=== PATIENT | female | born 1960 | race African-American/Black ===

== ENCOUNTER 2017-09-06 07:26 | Emergency (ER) | payer BC ==
[2017-09-06] MEDS ORDERED: methylPREDNISolone 125 MG* 2 ML VIAL IV ONE (08:53)
[2017-09-06] MEDS ORDERED: Albuterol/Ipratropium NEB.SOL* Albuterol 2.5 MG/Ipratropium 0.5 MG 3 ML INH ONE (08:53)
--- NOTE | 2017-09-06 09:51 | RAD ---
INDICATION: Cough. COMPARISON: Comparison is made with a prior chest study from December 01, 2008. TECHNIQUE: Dual-energy PA and lateral views of the chest were obtained. FINDINGS: The heart is within normal limits in size. Mediastinal and hilar contours appear within normal limits. The lungs are clear. No pleural effusion is present. IMPRESSION: NO EVIDENCE FOR ACTIVE CARDIOPULMONARY DISEASE.
[2017-09-06] MEDS ORDERED: NS 0.9% 1000 ML* 1,000 ML IV ONE (10:55)
[2017-09-06 11:19] LABS: ABS Basophils 0 10^3/ul (0-0.2); ABS Eosinophils 0 10^3/ul (0-0.6); ABS Lymphocytes 0.9 10^3/ul (1.0-4.8); ABS Monocytes 0.2 10^3/ul (0-0.8); ABS Neutrophils 3.8 10^3/ul (1.5-7.7); ABS Nucleated RBC 0 10^3/ul; Eosinophil % 0.1 % (0-6); Hematocrit 42 % (35-47); Mean Corpuscular HGB Conc 33 g/dl (31-36); Mean Corpuscular Hemoglobin 27 pg (27-31); Mean Corpuscular Volume 83 fL (80-97); Mean Platelet Volume 8.7 um3 (7.4-10.4); Nucleated Red Blood Cells % 0.1; Platelet Count 191 10^3/ul (150-450); Red Blood Count 5.11 10^6/ul (4.0-5.4); Red Cell Distribution Width 16 % (10.5-15); White Blood Count 4.8 10^3/ul (3.5-10.8)
[2017-09-06 11:39] LABS: EGFR Non-African American 58.9 (>60)
[2017-09-06 12:16] VITALS: BP 145/74
--- NOTE | 2017-09-06 12:26 | ED ---
Zander Barkley Thomas, scribed for Rob Valenzuela MD on 09/06/17 at 1024 . Respiratory - HPI Summary HPI Summary: The patient is a 57 year old female complaining of a dry cough for the last month. The cough has been causing her difficulty breathing and difficulty sleeping. She went to her PMD about a month ago and she was negative for the Flu. The patient was prescribed albuterol PRN by her PMD, which she has been using to no relief of symptoms. The patient denies fevers. - History of Current Complaint Chief Complaint: EDFluSymptoms Stated Complaint: POSSIBLE FLU/DEHYDRATION Time Seen by Provider: 09/06/17 07:49 Hx Obtained From: Patient Onset/Duration: Lasting Weeks, Still Present Timing: Intermittent Episodes Lasting: Initial Severity: Moderate Current Severity: Moderate Pain Intensity: 6 Character: Cough (Nonproductive) Sputum Amount: None Alleviating Factor(s): Nothing Associated Signs and Symptoms: Negative - fevers - Allergy/Home Medications Allergies/Adverse Reactions: Allergies Allergy/AdvReac Type Severity Reaction Status Date / Time No Known Allergies Allergy Verified 07/03/14 10:37 PMH/Surg Hx/FS Hx/Imm Hx Endocrine/Hematology History: Denies: Hx Diabetes, Hx Thyroid Disease Cardiovascular History: Denies: Hx Hypertension Respiratory History: Denies: Hx Asthma, Hx Chronic Obstructive Pulmonary Disease (COPD) GI History: Denies: Hx Ulcer - Surgical History Surgery Procedure, Year, and Place: hysterectomy 2008. shoulder surgery 2003. tonsillectomy due to sleep apnea Infectious Disease History: No Infectious Disease History: Denies: Hx Clostridium Difficile, Hx Hepatitis, Hx Human Immunodeficiency Virus (HIV), Hx of Known/Suspected MRSA, Hx Shingles, Hx Tuberculosis, Traveled Outside the [place] in Last 30 Days - Family History Known Family History: Positive: Other - Patient denies relevant FHx - Social History Alcohol Use: Weekly Alcohol Amount: "every Sunday" Substance Use Type: Reports: None Smoking Status (MU): Never Smoked Tobacco Review of Systems Negative: Fever Positive: Cough - dry All Other Systems Reviewed And Are Negative: Yes Physical Exam - Summary Physical Exam Summary: Appearance: The patient is well-nourished in no acute distress and in no acute pain. Skin: The skin is warm and dry and skin color reflects adequate perfusion. HEENT: The head is normocephalic and atraumatic. The pupils are equal and reactive. The conjunctivae are clear and without drainage. Nares are patent and without drainage. Mouth reveals moist mucous membranes and the throat is without erythema and exudate. The external ears are intact. The ear canals are patent and without drainage. The tympanic membranes are intact. Neck: the neck is supple with full range of motion and non-tender. There are no carotid bruits. There is no neck vein distension. Respiratory: Chest is non-tender. There are some expiratory wheezes. Cardiovascular: Heart is regular rate and rhythm. There is no murmur or rub auscultated. There is no peripheral edema and pulses are symmetrical and equal. Abdomen: The abdomen is soft and non-tender. There are normal bowel sounds heard in all four quadrants and there is no organomegaly palpated. Musculoskeletal: There is no back tenderness noted. Extremities are non-tender with full range of motion. There is good capillary refill. There is no peripheral edema or calf tenderness elicited. Neurological: Patient is alert and oriented to person, place and time. The patient has symmetrical motor strength in all four extremities. Cranial nerves are grossly intact. Deep tendon reflexes are symmetrical and equal in all four extremities. Psychiatric: The patient has an appropriate affect and does not exhibit any anxiety or depression. Triage Information Reviewed: Yes Vital Signs On Initial Exam: Initial Vitals Temp Pulse Resp BP Pulse Ox 98.9 F 97 20 137/69 96 09/06/17 07:42 09/06/17 07:42 09/06/17 07:42 09/06/17 07:42 09/06/17 07:42 Vital Signs Reviewed: Yes Diagnostics - Vital Signs Vital Signs Temp Pulse Resp BP Pulse Ox 09/06/17 09:08 83 14 99 09/06/17 09:00 92 118/73 97 09/06/17 08:30 99 124/78 96 09/06/17 07:59 97 96 09/06/17 07:58 105 97 09/06/17 07:57 132/78 09/06/17 07:42 98.9 F 97 20 137/69 96 - Laboratory Lab Results: Lab Results 09/06/17 09/06/17 Range/Units 11:07 11:07 WBC 4.8 (3.5-10.8) 10^3/ul RBC 5.11 (4.0-5.4) 10^6/ul Hgb 14.0 (12.0-16.0) g/dl Hct 42 (35-47) % MCV 83 (80-97) fL MCH 27 (27-31) pg MCHC 33 (31-36) g/dl RDW 16 H (10.5-15) % Plt Count 191 (150-450) 10^3/ul MPV 8.7 (7.4-10.4) um3 Neut % (Auto) 77.8 (38-83) % Lymph % (Auto) 18.0 L (25-47) % Angelina % (Auto) 3.6 (0-7) % Eos % (Auto) 0.1 (0-6) % Baso % (Auto) 0.5 (0-2) % Absolute Neuts (auto) 3.8 (1.5-7.7) 10^3/ul Absolute Lymphs (auto) 0.9 L (1.0-4.8) 10^3/ul Absolute Monos (auto) 0.2 (0-0.8) 10^3/ul Absolute Eos (auto) 0 (0-0.6) 10^3/ul Absolute Basos (auto) 0 (0-0.2) 10^3/ul Absolute Nucleated RBC 0 10^3/ul Nucleated RBC % 0.1 Sodium 135 (133-145) mmol/L Potassium 4.0 (3.5-5.0) mmol/L Chloride 103 (101-111) mmol/L Carbon Dioxide 23 (22-32) mmol/L Anion Gap 9 (2-11) mmol/L BUN 12 (6-24) mg/dL Creatinine 0.98 H (0.51-0.95) mg/dL Est GFR ( Amer) 75.8 (>60) Est GFR (Non-Af Amer) 58.9 (>60) BUN/Creatinine Ratio 12.2 (8-20) Glucose 211 H (70-100) mg/dL Calcium 9.0 (8.6-10.3) mg/dL Total Bilirubin 0.30 (0.2-1.0) mg/dL AST 23 (13-39) U/L ALT 30 (7-52) U/L Alkaline Phosphatase 67 (34-104) U/L C-Reactive Protein 8.78 H (< 5.00) mg/L Total Protein 6.9 (6.4-8.9) g/dL Albumin 4.1 (3.2-5.2) g/dL Globulin 2.8 (2-4) g/dL Albumin/Globulin Ratio 1.5 (1-3) Result Diagrams: 09/06/17 11:07 09/06/17 11:07 Lab Statement: Any lab studies that have been ordered have been reviewed, and results considered in the medical decision making process. - Radiology CXR Xray Interpretation: No Acute Changes - No evidence for active cardiopulmonary disease. Dr. Valenzuela has reviewed this report. Radiology Interpretation Completed By: Radiologist Re-Evaluation - Re-Evaluation First Eval Re-Evaluation Time: 10:55 Change: Improved Comment: She is improved after treatments. She now tells me that she has spots in her eyes when she stands up. Second Eval Re-Evaluation Time: 12:01 Comment: She will be discharged. Disposition - Course Course Of Treatment: Ms. Weiss presented with a concern that she has been coughing paroxysmally for a month. She saw her PMD and was given an albuterol inhaler but hasn't gotten any better. She did have a slight wheeze here which improved with a duoneb as did her coughing. I will give her a short burst as well as tessalon for symptomatic treatment. - Diagnoses Provider Diagnoses: Bronchitis Discharge - Sign-Out/Discharge Documenting (check all that apply): Discharge - Discharge Plan Condition: Stable Disposition: HOME Prescriptions: Benzonatate CAP* [Tessalon 100 MG CAP*] 100 mg PO TID PRN #30 cap PRN Reason: Cough methylPREDNISolone [Medrol Dosepak 4 MG*] 4 mg PO .SEE ANTON INSTRUCTION #1 tab Patient Education Materials: Acute Bronchitis (ED) Forms: *Work Release Referrals: Catherine Zhang MD [Primary Care Provider] - 3 Days Additional Instructions: Follow up with your primary care physician in three days. Return to the emergency department for any new or worsening symptoms. - Billing Disposition and Condition Condition: STABLE Disposition: HOME The documentation as recorded by the Zander chambers Thomas accurately reflects the service I personally performed and the decisions made by me, Rob Valenzuela MD.
== END 2017-09-06 12:15 | disposition home or self-care (01) ==
LOC: ED 07:26
DX: J40 Bronchitis, not specified as acute or chronic (principal); R05 Cough
CPT/HCPCS: 36415; 71046; 80053; 85025; 86140; 94640; 96374; 99282; A9270-GY; J2930

== ENCOUNTER 2019-02-20 08:22 | Emergency (ER) | payer BC ==
--- OUTSIDE RECORDS SUMMARY | 2019-02-20 08:44 | XMS REPORT | Continuity of Care Document ---
:1960 External Reference #:[id number] Author Name Catherine Zhang M.D. Address [address] [facility] [place] [address] Care Team Providers Name Role Phone Catherine Zhang M.D. - Family Medicine Care Team Information [facility] Unavailable [facility] Neurosurgery Care Team Information [facility] [phone] [facility] Physical Care Team Information [facility] [phone] Therapy - Physical Therapy [facility] - Physical Care Team Information [facility] Therapist Problems Active Problems Provider Date Disorder of thyroid gland Mahesh Saucedo M.D. Onset: 06/26/2014 Anxiety Catherine Zhang M.D. Onset: 01/26/2016 Premature atrial contraction Catherine Zhang M.D. Onset: 01/26/2016 Asthma Catherine Zhang M.D. Onset: 01/26/2016 Mixed hyperlipidemia Catherine Zhang M.D. Onset: 02/01/2016 Impaired fasting glycaemia Catherine Zhang M.D. Onset: 05/02/2018 Erosive gastro-esophageal reflux disease Catherine Zhang M.D. Onset: 07/10/2018 Muscle pain Catherine Zhang M.D. Onset: 07/18/2018 Gastro-esophageal reflux disease with Catherine Zhang M.D. Onset: 07/18/2018 esophagitis Neck pain Catherine Zhang M.D. Onset: 07/18/2018 Social History Type Date Description Comments Sex Unknown Tobacco Use Start: Unknown Nonsmoker Tobacco Use Start: Unknown End: Former Cigarette Smoker 1999 Smoking Status Reviewed: 07/18/18 Former Cigarette Smoker 1999 ETOH Use Occasionally consumes alcohol 1x/week Tobacco Use Start: Unknown End: Patient is a former smoker Unknown Recreational Drug Use Denies Drug Use Allergies, Adverse Reactions, Alerts Active Allergies Reaction Severity Comments Date Betadine Contact dermatitis 07/30/2014 Facial Mask facial rash 07/30/2017 Inactive Allergies NKDA 02/17/2011 Medications Active Medications SIG Qnty Indications Ordering Provider Date Ocuvite Adult 50+ 1 by mouth daily Unknown Capsules Multivitamin Adult 1 by mouth every Unknown Tablets day Immunizations CPT Code Status Date Vaccine Reaction Lot # [id number] Given 02/17/2015 Tdap Tetanus, W Pertussis [id number] Given 04/05/2011 DO Not Use Split Influenza Virus no reaction noted [id number] Vaccine 89717 Given 08/09/2009 DO Not Use Split Influenza Virus [id number] Vaccine 04720 Given 11/12/2000 Td Immunization, For Use In Individuals 7 Years Or Older Vital Signs Date Vital Result Comment 02/06/2019 10:37am BP Systolic 124 mmHg BP Diastolic 82 mmHg Heart Rate 64 /min Body Temperature 98.8 F Respiratory Rate 16 /min Height 64.75 inches 5'4.75" stated Weight 197.00 lb BMI (Body Mass Index) 33.0 kg/m2 07/18/2018 9:09am BP Systolic 130 mmHg BP Diastolic 84 mmHg Heart Rate 72 /min Body Temperature 98.0 F Height 64.75 inches 5'4.75" stated Weight 197.00 lb BMI (Body Mass Index) 33.0 kg/m2 Results Test Date Facility Test Result H/L Range Note Comprehensive Metabolic 01/28/2019 [facility]) Sodium 141 mEq/L 134-149 Prof Potassium 4.6 mEq/L 3.6-5.5 Chloride 106 mEq/L 94-112 Carbon Dioxide 24 mEq/L 21-32 Glucose 157 mg/dL High 70-105 1 BUN 13 mg/dL 6-26 Creatinine 0.9 mg/dL 0.6-1.4 BUN/Creat Ratio 14.4 CALC 8.0-36.0 Calcium 9.1 mg/dL 8.6-10.2 Total Protein 6.5 g/dL 6.4-8.3 Albumin 4.4 g/dL 3.8-5.5 Globulin 2.1 g/dL 2.0-4.8 A/G Ratio 2.1 CALC 0.6-2.3 Alk. Phosphatase 81 U/L 30-110 Alt (SGPT) 23 U/L 7-35 Ast (Sgot) 15 U/L 5-34 Total Bilirubin 0.5 mg/dL 0.2-1.3 GFR Non- >60 ml/min/1.73m^ >=60 GFR >60 ml/min/1.73m^ >=60 Lipid Profile 01/28/2019 [facility]) Cholesterol 199 mg/dL 120- 200 Triglycerides 83 mg/dL 30-200 HDL Cholesterol 42 mg/dL 30-85 LDL (Calculated) 140 CALC High 0-129 VLDL Cholesterol 17 mg/dL 0-50 HDL Risk Factor 4.7 CALC High 0.0-4.4 Laboratory test finding 01/28/2019 [facility]) TSH 1.76 mIU/L 0.50-6.00 Free T4 0.87 ng/dL 0.75-1.54 CBC Electronic a 01/28/2019 [facility]) WBC 8.4 x10^3/UL 4.0- 10.0 RBC 4.91 x10^6/UL 3.93-6.00 HGB 13.6 g/dL 12.0-17.0 HCT 41 % 35-50 MCV 82.7 fL 80.0-95.0 MCH 27.7 pg 25.6-32.2 MCHC 33.5 g/dL 32.2-36.0 RDW-CV 15.6 % High 11.6-14.4 PLT 268 x10^3/UL 163-400 MPV 11.4 fL 9.4-12.4 Kali# 3.82 x10^3/UL 1.56-6.13 Lymph# 3.59 x10^3/UL 1.18-3.74 [place]# 0.61 x10^3/UL 0.24-0.82 Eos # 0.4 x10^3/UL 0.0-0.5 Baso # 0.05 x10^3/UL 0.01-0.08 Kali% 45.3 % 34.0-70.0 Lymph % 42.5 % 20.0-52.0 [place]% 7.2 % 5.0-12.0 Eos% 4.3 % 0.7-7.0 Baso% 0.6 % 0.1-1.2 Laboratory test 01/28/2019 [facility] Hemoglobin A1c 5.9 % High 4.1- 5.7 finding (607)- - (Fma) Laboratory test 10/01/2018 [facility] SEE RESULT 2, 3 finding Interface Order BELOW Comprehensive 09/04/2018 [facility]) Sodium 148 mEq/L 134-149 Metabolic Prof Potassium 4.7 mEq/L 3.6-5.5 Chloride 109 mEq/L 94-112 Carbon Dioxide 22 mEq/L 21-32 Glucose 155 mg/dL High 70-105 BUN 12 mg/dL 6-26 Creatinine 1.1 mg/dL 0.6-1.4 BUN/Creat Ratio 10.9 CALC 8.0-36.0 Calcium 9.9 mg/dL 8.6-10.2 Total Protein 7.0 g/dL 6.4-8.3 Albumin 4.8 g/dL 3.8-5.5 Globulin 2.2 g/dL 2.0-4.8 A/G Ratio 2.2 CALC 0.6-2.3 Alk. Phosphatase 87 U/L 30-110 Alt (SGPT) 23 U/L 7-35 Ast (Sgot) 17 U/L 5-34 Total Bilirubin 0.7 mg/dL 0.2-1.3 GFR Non- 55 ml/min/1.73m^ Low >=60 GFR >60 ml/min/1.73m^ >=60 Lipid Profile 09/04/2018 [facility]) Cholesterol 192 mg/dL 120- 200 Triglycerides 101 mg/dL 30-200 HDL Cholesterol 45 mg/dL 30-85 LDL (Calculated) 127 CALC 0-129 VLDL Cholesterol 20 mg/dL 0-50 HDL Risk Factor 4.3 CALC 0.0-4.4 Laboratory test finding 09/04/2018 [facility]) TSH 1.99 mIU/L 0.50-6.00 Free T4 1.01 ng/dL 0.75-1.54 Rheumatoid 09/04/2018 [facility] Ra Latex <10.0 IU/mL 0.0-13.9 4 Arthritis Factor [address] [facility] ([facility]) [place] [address] (607)- - CBC Electronic 09/04/2018 [facility] WBC 6.74 4.0-10.0 ([facility] New) (607)- - RBC 5.25 3.93-6.0 Hemoglobin (Fma/CMC/CTX) 14.4 g/dL 12.0-17.0 Hematocrit (Fma/CMC/CTX) 44.0 % 35.0-50.0 Mean Corpuscular Vol 83.8 fL 80-95 Mean Corpuscular Hemoglobin 27.4 pg 25.6-32.2 Mean Corpuscular Hemo Concen 32.7 g/dL 32.2-36.0 Platelets 245 10^3/ul 163-400 RDW-CV 15.7 High 11.6-14.4 Mean Platelet Volume 9.9 fL 8.0-12.4 Absolute Neutrophils BLD 3.51 1.56-6.13 Absolute Lymphocytes 2.51 1.18-3.74 Absolute Monocytes BLD Auto 0.60 0.24-0.82 Absolute Eos Blood 0.09 0.04-0.54 Absolute Basophils 0.03 0.01-0.08 Neutrophil % 52.2 % 34.0-70.0 Lymph% 37.2 % 20.0-52.0 Monocytes % 8.9 % 5.0-12.0 Eos % 1.3 % 0.7-7.0 Basophil% 0.4 % 0-1.2 Laboratory test 09/04/2018 [facility] Hemoglobin A1c 5.9 % % High 4.1-5.7 finding (607)- - (Fma) 1 consistent w/ previous results 2 [id number] SEE RESULT BELOW Name: FRANCE WEISS : [address]: Librado Ramírez DO Acct: [id number] Unit: [id number] AGE: 58 Location: [facility] Re10/01/18 SEX: F Status: DEP REF SPEC: [id number] EVETTE: 10/01/18-[address] [facility] [address]: Librado Ramírez DO REQ: [id number] RECD: 10/01/18 STATUS: TAWANDA GALVEZ DR: Catherine Zhang MD _ ORDERED: LEVEL 4/2, IMMUNO-FIRST COMMENTS: [id number] ADDENDUM An H. pylori immunohistochemical stain, with appropriately reacting controls , was performed on sections cut from specimen one and is negative for Helicobacter organisms. Addendum Signed (signature on file) Tana Doss MD 1027 FINAL DIAGNOSIS 1. Stomach, biopsy: -- Antral-type gastric mucosa with moderate chronic gastritis; see comment. 2. Esophagus, distal, biopsy: -- Benign squamous and columnar-type mucosa with chronic inflammation. -- Intestinal metaplasia is absent. -- Dysplasia is absent. COMMENT: An H. pylori immunohistochemical stain is pending for specimen 1 and the results will be reported in an addendum. CLINICAL HISTORY Erosive esophagitis CONTINUED ON NEXT PAGE DEPARTMENT OF PATHOLOGY, [address], [place], [place] [address] Loco Eng M.D. Director [facility] # [id number] RUN DATE: 10/03/18 [facility] LAB LIVE PAGE 2 Patient: FRANCE WEISS [id number] (Continued) POST-OPERATIVE DIAGNOSIS (Continued) POST-OPERATIVE DIAGNOSIS EGD: esophagus - healed erosive reflux biopsy; minimal gastroesophageal junction; variable; gastric - mild antral gastritis; duodenum - normal GROSS DESCRIPTION 1. The specimen is received in formalin labeled, Gastric Biopsy for Gastritis, and consists of two grimm-pink irregular soft tissue fragments averaging aggregating 0.4 x 0.3 x 0.1 cm which are submitted entirely in one cassette. 2. The specimen is received in formalin labeled, Distal Esophagus Biopsies , and consists of a 0.5 x 0.2 x 0.1 cm aggregate of grimm-pink irregular soft tissue fragments which is submitted entirely in one cassette. Signed by and Reported on: Tana Doss MD 10/02/18 1302 END OF REPORT DEPARTMENT OF PATHOLOGY, [address] [place] [address] Loco Eng M.D. Director [facility] # [id number] 4 SERUM Procedures Date Code Description Status 06/14/2018 [id number] Mammogram Completed 06/18/2012 [id number] Colonoscopy Completed Medical Devices Description No Information Available Encounters Type Date Location Provider Dx Diagnosis Office Visit 02/06/2019 Main Office Catherine Zhang M.D. R73.01 Impaired fasting 10:40a glucose M54.12 Radiculopathy, cervical region M54.5 Low back pain Assessments Date Code Description Provider 02/06/2019 R73.01 Impaired fasting glucose Catherine Zhang M.D. 02/06/2019 M54.12 Radiculopathy, cervical region Catherine Zhang M.D. 02/06/2019 M54.5 Low back pain Catherine Zhang M.D. 01/28/2019 R73.01 Impaired fasting glucose Catherine Zhang M.D. 01/28/2019 Z00.01 Encounter for general adult medical examination Catherine Zhang M.D. with abnormal findings 01/28/2019 E07.9 Disorder of thyroid, unspecified Catherine Zhang M.D. 09/04/2018 Z00.01 Encounter for general adult medical exam w Catherine Zhang M.D. abnormal findings 09/04/2018 E07.9 Disorder of thyroid, unspecified Catherine Zhang M.D. 09/04/2018 R73.01 Impaired fasting glucose Catherine Zhang M.D. Plan of Treatment Future Appointment(s):07/24/2019 8:00 am - Catherine Zhang M.D. at Main [facility] - Catherine Zhang M.D.R73.01 Impaired fasting glucoseComments:Counseled on heart healthy diet and exercise including limiting carbs and portion control and at least 30 minutes of physical activity daily. Consider Mediterranean diet as a guide for healthy eating. A1c> 6.5 is diagnostic of diabetes consider 30g of carbs per meal; low glycemic index foods, keto friendly mealsFollow up: physical fasting labsM54.12 Radiculopathy, cervical regionComments:following with dr Allison54.5 Low back painComments:Take medications as directed. Can use heat or ice on area 15 minutes on/off. Use a tennis ball or foam roller to massage and loosen muscle spasm. Stretching exercises are recommended twice a day. Callif symptoms aren't improved/worsen in next 1-2 weeks.AllComments: Medication Management Patient Understands medications she's taking? Yes No Are there Barriers to Adherence? Yes No Has the patient been asked about herbal supplements and therapies, and OTC meds? Yes No Functional Status Description No Information Available Mental Status Description No Information Available Referrals Refer to Reason for Referral Status Appt Date Luba Pham MD consult and treat neck pain [address] [place] [address] [phone] [facility] Physical PHYSICAL THERAPY evaluate and Scheduled Therapy treat neck pain [address] [facility] [address] [place] [address] [phone]
--- OUTSIDE RECORDS SUMMARY | 2019-02-20 08:45 | XMS REPORT | Continuity of Care Document ---
:1960 External Reference #:[id number] Author Name Ora Deshpande Care Team Providers Name Role Phone Catherine Zhang MD Primary Care Physician Unavailable Payers Date Identification Numbers Payment Provider Subscriber Effective: 2012 Policy Number: [id number] BS [employer]ets Christine José PayID: [id number] [address] [address] [place] [address] Problems Active Problems Provider Date Hypothyroidism Theresa Lyon M.D. Onset: 06/14/2011 Sleep apnea Theresa Lyon M.D. Onset: 06/30/2011 Family History Date Family Member(s) Observation Comments Onset: (01/04/2016) (age Father Hypertension 76 Years) Father Pancreatic Cancer Onset: (01/04/2016) (age Mother unknown 73 Years) Siblings 4 no known cardiac issues Social History Type Date Description Comments Sex Unknown Marital Status Single Marital Status Lives With 01/04/2016 Roommate female Occupation 01/04/2016 [employer] Tobacco Use Start: Unknown End: Former Cigarette Smoker Unknown Smoking Status Reviewed: 01/23/19 Former Cigarette Smoker ETOH Use Occasionally consumes alcohol Tobacco Use Start: Unknown End: Patient is a former Unknown smoker Recreational Drug Use Denies Drug Use Exercise Type/Frequency Exercises regularly Allergies, Adverse Reactions, Alerts Active Allergies Reaction Severity Comments Date NKDA 01/23/2019 seasonal sneezing 05/30/2011 Medications Active Medications SIG Qnty Indications Ordering Provider Date Ocuvite 1 po qd 90tabs Unknown Tablets Centrum Silver 1 by mouth Unknown Tablets every day History Medications Fluticasone Propionate 1 squirts each 1units 477.8 Jolly Lopez, 2012 - nostril qd M.D. 03/13/2014 50mcg/Act Suspension Flovent Diskus 1 puff bid 1units 493.10 Jolly Lopez, 12/25/2012 - 100mcg/Blist M.D. 03/13/2014 Aerosol Ergocalciferol 1 tab by mouth 8caps Jolly Lopez, 11/18/2012 - 20376Cszq every week M.D. 04/14/2013 Capsules Ventolin HFA inhale 2 puffs 1units 786.2 Jolly Lopez, 11/13/2012 - 108(90Base) by mouth four M.D. 03/13/2014 mcg/Act Aerosol times a day as needed Ibuprofen 400 mg po 100tabs 461.0 Sofia Kline, 10/11/2012 - 400mg Tablets q4-6h; max 2400 N.P. 12/25/2012 mg/day Fluticasone Propionate 2 spray in each 1bottle 461.0 Sofia Kline, 10/11 - nostril in am N.P. 12/25/2012 50mcg/Act Suspension Amoxicillin 1 cap bid for 20caps 461.0 Sofia Kline, 10/11/2012 - 500mg Capsules 10 days N.P. 12/25/2012 Cyclobenzaprine HCL one po once per 30tabs 840.8 Theresa Lyon, 2012 - 10mg day prn spasm M.D. 12/25/2012 Tablets Vitamin D 1 tab po every 8caps 268.9 Theresa Lyon, 02/22/2012 - 69912Eqpi week for 8 M.D. 08/22/2012 Capsules weeks Vitamin D 1 tab po every 8caps Theresa Lyon, 11/07/2011 - 38704Ljbj week for 8 M.D. 02/22/2012 Capsules weeks Triamcinolone Acetonide apply to rash 45gm 692.9 Theresa Lyon, 2011 - on arms 2x per M.D. 03/13/2014 0.1% Ointment day Azithromycin 2 tab po day 1 6tabs 461.0 Theresa Lyon, 06/30/2011 - 250mg Tablets then 1 tab po M.D. 08/03/2011 day 2-5 Nasonex 2 sp nasal 1units 461.0 Theresasuha Lyon, 06/30/2011 - 50mcg/Act every day M.D. 11/02/2011 Suspension Nexium 1 po qd prn 90caps [facility] - 40mg Capsules DR Skip M.D.,FACP 10/01/2012 Levothyroxine Sodium 1 po qd 90tabs Theresasuha Lyon, - 25mcg M.D. 12/25/2012 Tablets Medications Administered in Office Medication SIG Qnty Indications Ordering Provider Date Celestone 3 mg and 3mg Chelsi Vang, 11/01/2011 Injection M.D. Celestone 3 mg and 3mg Chelsi Ciera, 11/01/2011 Injection M.D. Immunizations CPT Code Status Date Vaccine Lot # [id number] Given 04/14/2013 Flu Vaccine Split Virus Preservative Free For [id number] Indiv [id number] Older [id number] Given 11/02/2011 Tdap - Tetanus/Diptheria/Acellular Pertussis [id number] Vital Signs Date Vital Result Comment 01/23/2019 10:56am Height 65 inches 5'5" Weight 195.00 lb BP Systolic Sitting 138 mmHg BP Diastolic Sitting 80 mmHg Pain Level 0 BMI (Body Mass Index) 32.4 kg/m2 11/20/2017 3:24pm Height 65 inches 5'5" Weight 195.00 lb Heart Rate 75 /min BP Systolic Sitting 122 mmHg BP Diastolic Sitting 72 mmHg O2 % BldC Oximetry 97 % BMI (Body Mass Index) 32.4 kg/m2 09/17/2017 8:05am Height 65 inches 5'5" Weight 195.25 lb Heart Rate 70 /min BP Systolic Sitting 123 mmHg BP Diastolic Sitting 79 mmHg Respiratory Rate 14 /min Pain Level 0 BMI (Body Mass Index) 32.5 kg/m2 02/18/2016 11:16am Height 65 inches 5'5" Weight 196.00 lb w/ shoes Heart Rate 64 /min reg BP Systolic Sitting 124 mmHg Lue, lg cuff BP Diastolic Sitting 76 mmHg Lue, lg cuff BP Systolic Standing 120 mmHg Lue BP Diastolic Standing 76 mmHg Lue Respiratory Rate 16 /min BMI (Body Mass Index) 32.6 kg/m2 Ejection Fraction 55-60% as of 8/1/16 echo 01/04/2016 9:44am Height 65 inches 5'5" Weight 192.00 lb w/shoes Heart Rate 70 /min BP Systolic Sitting 138 mmHg LA lg cuff BP Diastolic Sitting 98 mmHg LA lg cuff BMI (Body Mass Index) 31.9 kg/m2 03/13/2014 1:26pm Heart Rate 80 /min BP Systolic Sitting 130 mmHg BP Diastolic Sitting 88 mmHg Respiratory Rate 18 /min Body Temperature 98.7 F O2 % BldC Oximetry 97 % 08/26/2013 2:14pm Height 65 inches 5'5" Weight 175.00 lb Heart Rate 78 /min BP Systolic Sitting 120 mmHg BP Diastolic Sitting 78 mmHg Body Temperature 97.1 F BMI (Body Mass Index) 29.1 kg/m2 04/14/2013 12:15pm Heart Rate 78 /min BP Systolic Sitting 121 mmHg BP Diastolic Sitting 82 mmHg Body Temperature 98.0 F O2 % BldC Oximetry 99 % 03/10/2013 2:21pm Weight 190.00 lb Heart Rate 63 /min BP Systolic Sitting 122 mmHg BP Diastolic Sitting 78 mmHg Body Temperature 97.0 F O2 % BldC Oximetry 98 % 12/25/2012 3:18pm Weight 188.00 lb Heart Rate 73 /min BP Systolic Sitting 112 mmHg BP Diastolic Sitting 72 mmHg O2 % BldC Oximetry 99 % 11/13/2012 3:30pm Weight 186.00 lb Heart Rate 79 /min BP Systolic Sitting 112 mmHg BP Diastolic Sitting 74 mmHg 10/11/2012 9:09am Heart Rate 80 /min BP Systolic Sitting 130 mmHg BP Diastolic Sitting 88 mmHg Body Temperature 97.4 F O2 % BldC Oximetry 98 % 10/01/2012 9:37am Heart Rate 83 /min BP Systolic Sitting 128 mmHg BP Diastolic Sitting 84 mmHg Body Temperature 97.9 F O2 % BldC Oximetry 98 % 09/03/2012 12:47pm Height 65 inches 5'5" Weight 190.00 lb Heart Rate 72 /min BP Systolic Sitting 126 mmHg BP Diastolic Sitting 80 mmHg BMI (Body Mass Index) 31.6 kg/m2 08/22/2012 3:45pm Height 65 inches 5'5" Weight 196.00 lb Heart Rate 100 /min BP Systolic Sitting 150 mmHg BP Diastolic Sitting 100 mmHg BMI (Body Mass Index) 32.6 kg/m2 02/22/2012 3:56pm Height 65 inches 5'5" Weight 190.00 lb Heart Rate 80 /min BP Systolic Sitting 120 mmHg BP Diastolic Sitting 82 mmHg BMI (Body Mass Index) 31.6 kg/m2 11/02/2011 3:39pm Height 65 inches 5'5" Weight 187.75 lb Heart Rate 68 /min BP Systolic Sitting 126 mmHg BP Diastolic Sitting 88 mmHg BMI (Body Mass Index) 31.2 kg/m2 10/26/2011 11:53am Height 65 inches 5'5" Weight 189.00 lb Heart Rate 100 /min BP Systolic Sitting 110 mmHg BP Diastolic Sitting 70 mmHg BMI (Body Mass Index) 31.4 kg/m2 08/03/2011 11:41am Height 65 inches 5'5" Weight 185.00 lb BP Systolic Sitting 122 mmHg L BP Diastolic Sitting 78 mmHg L BMI (Body Mass Index) 30.8 kg/m2 06/30/2011 12:54pm Height 65 inches 5'5" Weight 185.00 lb Heart Rate 72 /min BP Systolic Sitting 118 mmHg L BP Diastolic Sitting 78 mmHg L BMI (Body Mass Index) 30.8 kg/m2 05/30/2011 3:56pm Height 65 inches 5'5" Weight 182.00 lb Heart Rate 76 /min BP Systolic Sitting 140 mmHg BP Diastolic Sitting 80 mmHg BMI (Body Mass Index) 30.3 kg/m2 Results Test Date Facility Test Result H/L Range Note Laura Igg AB Reflex 10/10/2017 [facility] SS-A/Ro Antibody <0.[address] [place] [address] [phone] SS-B/La Antibody <0.2 U 2 Sm (Garcia) IgG Antibody <0.2 U 3 U1-nRNP Antibody <0.2 U 4 Scl-70 (Scleroderma) Antibody 0.6 U 5 Marcelina-1 Antibody <0.2 U 6 Laboratory test 10/10/2017 [facility] Creatine 72 U/L Normal 10-223 7 finding Kinase(CK) [place] [address] [phone] Complement C3 141 mg/dL 75 - 175 8 Complement C4 49 mg/dL Abnormal 14 - 40 9 Anti Double Stranded Dna AB <12.3 IU/mL 10 Cardiolipin 10/10/2017 [facility] Phospholipid Ab < 9.4 MPL 11 Igg/Igm [address] IgM, [place] [address] [phone] Phospholipid Ab IgG < 9.4 GPL 12 Basic Metabolic 10/10/2017 [facility] Sodium 139 mmol/L Normal 139-[address] [place] [address] [phone] Potassium 4.4 mmol/L Normal 3.5-5.0 Chloride 104 mmol/L Normal 101-111 Co2 Carbon Dioxide 27 mmol/L Normal 22-32 Anion Gap 8 mmol/L Normal 2-11 Glucose 123 mg/dL High 70-100 Blood Urea Nitrogen 16 mg/dL Normal 6-24 Creatinine 1.05 mg/dL High 0.51-0.95 BUN/Creatinine Ratio 15.2 Normal 8-20 Calcium 9.7 mg/dL Normal 8.6-10.3 Egfr Non- 54.4 >60 Egfr 70.0 >60 13 Laboratory test 10/10/2017 [facility] Vitamin B12 389 pg/mL Normal 180-[address] [place] [address] [phone] Vitamin B6 10/10/2017 [facility] Pyridoxal 30 g/L 5-[address] 5[place] [address] [phone] Pyridoxic Acid 4 g/L 3-30 16 Laboratory test 10/10/2017 [facility] Vitamin D, 1,25 49 pg/mL 18-[address] [place] [address] [phone] Vitamin D, 25 03/10/2013 [facility] 25-Hydroxy 24 ng/mL Hydroxy Vitamin D2 [place] [address] [phone] 25-Hydroxy Vitamin D3 11 ng/mL 25-Hydroxy Vitamin D Total 35 ng/mL 18 Laboratory test 03/10/2013 [facility] TSH (Thyroid 1.59 0.34- 5.[address] Stimulating miu/[place] [address] Horm) [phone] Surgical 01/03/2013 [facility] S RUN DATE: [address] [place] [address] <SEE NOTE> [phone] Laboratory test 12/25/2012 [facility] TSH (Thyroid 2.08 0.34- 5.[address] Stimulating miu/[place] [address] Horm) [phone] Free T4 0.72 ng/mL 0.61-1.24 Comp Metabolic Panel 11/12/2012 [facility] Sodium 140 mmol/L 133-[address] [place] [address] [phone] Potassium 3.9 mmol/L 3.5-5.0 Chloride 106 mmol/L 101-111 Co2 Carbon Dioxide 28.0 mmol/L 22-32 Anion Gap 6.0 mmol/L 2-11 Glucose 128 mg/dL High 70-100 Blood Urea Nitrogen 14 mg/dL 6-24 Creatinine 0.90 mg/dL 0.50-1.40 BUN/Creatinine Ratio 15.6 8-20 Calcium 9.6 mg/dL 8.1-9.9 Total Protein 6.7 g/dL 6.2-8.1 Albumin 4.0 g/dL 3.6-5.4 Globulin 2.7 g/dL 2-4 Albumin/Globulin Ratio 1.5 1-3 Total Bilirubin 0.8 mg/dL 0.4-1.5 Alkaline Phosphatase 75 U/L 30-110 Alt 24 U/L 14-54 Ast 20 U/L 12-42 Egfr Non- 66.3 >60 Egfr 85.2 >60 20 Lipid Profile 11/12/2012 [facility] Triglycerides 115 mg/dL 40-200 (Trig/Chol/HDL) [address] [place] [address] [phone] Cholesterol 210 mg/dL High Less than 200 HDL Cholesterol 39 mg/dL Low 40-60 21 Cholesterol/HDL Ratio 5.4 Average High 1-4.44 LDL Cholesterol 148.0 mg/dL High Less Than 100 22 Laboratory test 11/12/2012 [facility] TSH (Thyroid 0.90 0.34- 5.60 [address] Stimulating miu/[place] [address] Horm) [phone] Free T4 0.66 ng/mL 0.61-1.24 24 Vitamin D, 25 11/12/2012 [facility] 25-Hydroxy Vitamin 13 ng/mL Hydroxy [address] D2 [place] [address] [phone] 25-Hydroxy Vitamin D3 13 ng/mL 25-Hydroxy Vitamin D Total 26 ng/mL 25 Laboratory test 11/02/2011 [facility] [address] Hemoglobin A1c 5.1 5-7 finding Vitamin D, 25 11/01/2011 [facility] 25-Hydroxy Vitamin <4.0 ng/ mL () Hydroxy [address] D[address] [place] [address] [phone] 25-Hydroxy Vitamin D3 10 ng/mL () 25-Hydroxy Vitamin D Total 10 ng/mL Abnormal () 26 Lipid Profile 11/01/2011 [facility] Triglyceride 101 mg/dL 40 -200 (Trig/Chol/HDL) [address] [place] [address] [phone] Cholesterol 218 mg/dL High Less Than 200 27 High Density Lipoprotein 40 mg/dL 40-60 28 Cholesterol/HDL Ratio 5.45 AVERAGE High 1-4.44 Low Density Lipoprotein 158 mg/dL High Less Than 100 29 Comp Metabolic Panel 11/01/2011 [facility] Sodium 138 mmol/L 135-[address] [place] [address] [phone] Potassium 4.3 mmol/L 3.5-5.0 Chloride 106 mmol/L 101-111 Co2 (Carbon Dioxide) 28.0 mmol/L 22-32 Anion Gap 4.0 mmol/L 2-11 30 Glucose 110 mg/dL High 70-100 BUN 11 mg/dL 6-24 Creatinine 0.9 mg/dL 0.50-1.40 One Over Creatinine 1.11 BUN/Creatinine Ratio 12.2 8-20 Calcium 9.7 mg/dL 8.1-9.9 Total Protein 7.0 GM/DL 6.2-8.1 Albumin 4.0 GM/DL 3.6-5.4 Globulin 3.0 GM/DL 2-4 Albumin/Globulin Ratio 1.3 1-3 Bilirubin Total 0.7 mg/dL 0.4-1.5 31 Alkaline Phosphatase 73 U/L 30-110 Alt (SGPT) 22 U/L 14-54 Ast (Sgot) 18 U/L 12-42 eGFR Non- 66.5 > 60 eGFR 85.6 > 60 32 CBC Auto Diff 11/01/2011 [facility] White Blood 7.8 CUMM 4.8- 10.[address] [place] [address] [phone] Red Cell Count 4.68 CUMM 4.2-5.4 Hemoglobin 13.5 g/dL 12.0-16.0 Hematocrit 39 % 35-47 Mean Corpuscular Volume 84 um3 79-97 Mean Corpuscular Hemoglob 29 pg 27-31 Mean Corpuscular HGB Cone 34 g/dL 32-36 Redcell Distribution WDTH 16 % High 10.5-15 Platelet Count 241 CUMM 150-450 Mean Platelet Volume 9.7 um3 7.4-10.4 Gran % 51.5 % 38-83 Lymph % 37.3 % 25-47 Mononuclear % 7.1 % 1-9 Eosinophil % 3.1 % 0-6 Basophil % 1.0 % 0-2 Abs Lymphs 2.9 1.0-4.8 Abs Mononuclear 0.6 0-0.8 Absolute Neutrophil Count 4.0 1.5-7.7 Abs Eosinophils 0.2 0-0.6 Abs Basophils 0.1 0-0.2 Laboratory test 11/01/2011 [facility] TSH 0.98 MIU/ML 0.34- 5.60 finding [address] [place] [address] [phone] Thyroxine Free 0.73 ng/dL 0.61-1.24 Clotest 10/09/2011 [facility] M <SEE NOTE> [address] [place] [address] [phone] Cytology 07/11/2011 [facility] Cytology <SEE NOTE> 34 [address] [place] [address] [phone] 1 REFERENCE VALUE <1.0 (Negative) 2 REFERENCE VALUE <1.0 (Negative) 3 REFERENCE VALUE <1.0 (Negative) 4 REFERENCE VALUE <1.0 (Negative) 5 REFERENCE VALUE <1.0 (Negative) 6 REFERENCE VALUE <1.0 (Negative) Test Performed by: [address] [address] 7 Please check labs this week 8 Test Performed by: [address] [address] 9 Test Performed by: [address] [address] 10 REFERENCE VALUE <30.0 (Negative) Test Performed by: [address] [address] 11 REFERENCE VALUE <15.0 (Negative) 12 REFERENCE VALUE <15.0 (Negative) Test Performed by: [address] [address] 13 Because ethnic data is not always readily available, this report includes an eGFR for both -Americans and non- Americans. The National Kidney Disease Education Program (NKDEP) does not endorse the use of the MDRD equation for patients that are not between the ages of 18 and 70, are , have extremes of body size, muscle mass, or nutritional status, or are non- or non-. According to the National Kidney Foundation, irrespective of diagnosis, the stage of the disease is based on the level of kidney function: Stage Description GFR(mL/min/1.73 m(2)) 1 Kidney damage with normal or decreased GFR 90 2 Kidney damage with mild decrease in GFR 60-89 3 Moderate decrease in GFR 30-59 4 Severe decrease in GFR 15-29 5 Kidney failure <15 (or dialysis) 14 Normal Range 180 to 914 Indeterminate Range 145 to 180 Deficient Range <145 15 ADDITIONAL INFORMATION This test was developed and its performance characteristics determined by [facility] in a manner consistent with CLIA requirements. This test has not been cleared or approved by the U.S. Food and Drug Administration. 16 ADDITIONAL INFORMATION This test was developed and its performance characteristics determined by [facility] in a manner consistent with CLIA requirements. This test has not been cleared or approved by the U.S. Food and Drug Administration. Test Performed by: [facility] [place] [address] 17 ADDITIONAL INFORMATION This test was developed and its performance characteristics determined by [facility] in a manner consistent with CLIA requirements. This test has not been cleared or approved by the U.S. Food and Drug Administration. Test Performed by: [facility] [employer] - [address] [address] 18 -- REFERENCE VALUE -- 25-HYDROXY D TOTAL (D2+D3) Optimum levels in the healthy population are 20-50, patients with bone disease may benefit from higher levels within this range. Test Performed by: [facility] [address] [place] [address] Hull Inspector: Akshat Butler III, M.D. 19 RUN DATE: 01/07/13 [facility] LAB LIVE PAGE 1 RUN TIME: [address] [place] [address] Specimen Inquiry Name: CHRISTINE JOSÉ : [address]: Leland Solis MD Acct: [id number] Unit: [id number] AGE: 52 Location: ENDO Re01/03/13 SEX: F Status: REG REF SPEC: [id number] EVETTE: 01/03/13- SUBM DR: Leland Solis MD REQ: [id number] RECD: 01/03/13 STATUS: TAWANDA GALVEZ DR: Jolly Lopez MD _ ORDERED: LEVEL IV FINAL DIAGNOSIS Colon, cecum, biopsy: Hyperplastic polyp. CLINICAL HISTORY Screening colonoscopy. POST-OPERATIVE DIAGNOSIS Screening colonoscopy into cecum. Prep good. Two small cecal polyps removed. GROSS DESCRIPTION The specimen is received in formalin labeled Christine José, Cecal Polyp and consists of four, grimm-white, nodular portions of tissue that measure 0.4 x 0.3 x 0.3 cm. , 0.3 x 0.3 x 0.2 cm., 0.3 x 0.2 x 0.2 cm., and 0.4 x 0.2 x 0.2 cm. Submitted entirely, one cassette. Signed (signature on file) Tana Doss MD 1559 END OF REPORT * ML = Testing performed at Main Lab DEPARTMENT OF PATHOLOGY, [address] [place] [address] Loco Eng M.D. Director [facility] Permit #[id number] 20 Because ethnic data is not always readily available, this report includes an eGFR for both -Americans and non- Americans. The National Kidney Disease Education Program (NKDEP) does not endorse the use of the MDRD equation for patients that are not between the ages of 18 and 70, are , have extremes of body size, muscle mass, or nutritional status, or are non- or non-. According to the National Kidney Foundation, irrespective of diagnosis, the stage of the disease is based on the level of kidney function: Stage Description GFR(mL/min/1.73 m(2)) 1 Kidney damage with normal or decreased GFR 90 2 Kidney damage with mild decrease in GFR 60-89 3 Moderate decrease in GFR 30-59 4 Severe decrease in GFR 15-29 5 Kidney failure <15 (or dialysis) 21 HDL Interpretation: Undesirable: High Risk: Less than 40 mg/dL Desirable: Low Risk: Greater than 60 mg/dL 22 LDL Interpretation: Low Risk Optimal Level: LDL Less than 100 mg/dL Near or Above Optimal: LDL 100-129 mg/dL Borderline High Risk: LDL 130-159 mg/dL High Risk: LDL 160-189 mg/dL Very High Risk: LDL Greater than 189 mg/dL 23 FASTING 24 FASTING 25 -- REFERENCE VALUE -- 25-HYDROXY D TOTAL (D2+D3) Optimum levels in the normal population are 25-80 Test Performed by: [address] [address] Hull Inspector: Akshat Butler III, M.D. 26 Interpretation: 10-24 (mild to moderate deficiency) -- REFERENCE VALUE -- 25-HYDROXY D TOTAL (D2+D3) Optimum levels in the normal population are 25-80 Test Performed by: [facility] Dpt of Lab Med and Pathology [address] [place] [address] Hull Inspector: Akshat Butler III, M.D. 27 CHOLESTEROL INTERPRETATION: Desirable: Less than 200 MG/DL Borderline-High Risk: 200-239 MG/DL High-Risk: 240 MG/DL and over 28 HDL INTERPRETATION: Undesirable: High Risk: Less than 40 MG/DL Desirable: Low Risk: Greater than 60 MG/DL 29 LDL INTERPRETATION: Low Risk Optimal Level: LDL Less than 100 MG/DL Near or Above Optimal: LDL 100-129 MG/DL Borderline High Risk: LDL 130-159 MG/DL High Risk: LDL 160-189 MG/DL Very High Risk: LDL Greater than 189 MG/DL 30 Anion gap measurement may be of limited value in the presence of any alkalosis, especially in a combined acid base disorder. . 31 A metabolite of Naproxen, O-desmethylnaproxen, has been shown to interfere with the Jendrassik-Charmaine method for measuring total bilirubin. Samples from patients who have taken Naproxen have shown spurious elevation in total bilirubin levels. 32 Because ethnic data is not always readily available, this report includes an eGFR for both -Americans and non- Americans. The National Kidney Disease Education Program (NKDEP) does not endorse the use of the MDRD equation for patients that are not between the ages of 18 and 70, are , have extremes of body size, muscle mass, or nutritional status, or are non- or non-. According to the National Kidney Foundation, irrespective of diagnosis, the stage of the disease is based on the level of kidney function: Stage Description GFR(mL/min/1.73 m(2)) 1 Kidney damage with normal or decreased GFR 90 2 Kidney damage with mild decrease in GFR 60-89 3 Moderate decrease in GFR 30-59 4 Severe decrease in GFR 15-29 5 Kidney failure <15 (or dialysis) 33 RUN DATE: 10/10/11 [facility] NMI LIVE PAGE 1 RUN TIME: 742 Specimen Inquiry RUN USER: INTERFACE Name: CHRISTINE JOSÉ Status: REG REF Re10/09/11 Age/Sex: 51/F Unit#: [id number] Location: [facility].B. : 64 SPEC #: [id number] EVETTE: 10/09/111229 STATUS: COMP REQ #: [id number] RECD: 10/09/11-[address]: Will THIBODEAUX,Leland Zuñiga SOURCE: CLOTEST ENTR: 10/09/11-[address]: Camron THIBODEAUX,Theresa Crowe [facility]: ORDERED: CLOTEST Procedure Result Verified Site > CLOTEST Final 10/10/11742 ML CLOTEST NEGATIVE - [facility] Permit #[id number] [address] [place] [address] DEPARTMENT OF PATHOLOGY, [address] [place] [address] [facility] Permit #[id number] Franny Nguyen M.D. Business Services Specialist Sales 34 ---- RUN DATE: 07/18/11 [facility] NMI LIVE PAGE 1 RUN TIME: 920 Specimen Inquiry RUN USER: INTERFACE -- Name: ESTEFANÍACHRISTINE Acchonorio#: [id number] Status: REG REF Re07/11/11 Age/Sex: 51/F Unit#: [id number] Location: [facility]. : [birth year] -- Specimen: [id number] SOUT Spec Date: 07/11/[address]: Suad posada NP Spec Type: CYTOLOGY Received: 07/12/11-4547 Copies to: Theresa calero MD SOURCE ECTOCERVICAL/ENDOCERVICAL Thin Prep with Reflex HPV Test PATIENT INFORMATION ACTUAL COLLECTION DATE: 07/11/11 ? No POST MENOPAUSAL? No HYSTERECTOMY? Yes PREVIOUS ABNORMAL PAP SMEARS No PATIENT HISTORY: Laparoscopic assisted vaginal hysterectomy 2008 Supracervic al ADEQUACY OF SPECIMEN Satisfactory for evaluation * Transformation zone component identified * DIAGNOSIS NEGATIVE FOR INTRAEPITHELIAL LESION OR MALIGNANCY * NOTE Specimen sent to [facility] in [place], [place] on 07/12/11 by AURELIOO at 1102. Results will be reported separately in an addendum. ADDENDUM Addendum #1 Entered: 07/18/11 [employer] Human Papilloma Virus test results received with preparation and diagnosis completed by [facility], [place], [place]. Results: NEGATIVE High Risk (for types 16, 18, 31, 33, 35, 39, 45, 51, 52, 56, 58, 59, 68) This test was developed and its performance characteristics determined by -- DEPARTMENT OF PATHOLOGY, [address] [place] [address] [facility] Permit #[id number] Franny Nguyen M.D. Systems Integrator Dir anguiano -- -- RUN DATE: 07/18/11 [facility] NMI LIVE PAGE 2 RUN TIME: 920 Specimen Inquiry RUN USER: INTERFACE -- Name: CHRISTINE JOSÉ Status: REG REF Re07/11/11 Age/Sex: 51/F Unit#: [id number] Location: [facility]. : 64 -- -- CONTINUED -- ADDENDUM (Continued) Laboratory Medicine and Pathology, [facility], [place], [place]. It has not been cleared or approved by the U.S. Food and Drug Administration. Test Performed by: [facility] Dpt of lab Med and Pathology [address] [place] [address] Hull Inspector: Akshat Butler III, M.D. Original hard copy report from [facility] is available upon request by calling Pathology at [phone]. Addendum Review Kristal BETANCUR([facility]) 07/18/11 -- This Pap test was evaluated with the assistance of the [facility]in[facility] Pap Test Imaging System. The Pap Smear is a screening test designed to aid in the detection of premalign ant and malignant conditions of the uterine cervix. It is not a diagnostic procedure a nd should not be used as the sole means of detecting cervical cancer. Both false- positiv e and false-negative reports do occur. Depending on your risk status, a Pap smear amara uld be obtained and evaluated every one to three years. Initial evaluation performed by Marie COLON([facility]) 07/12/11 Final Interpretation electronically signed by: Marie COLON([facility]) 07/12/11 1211 -- -- DEPARTMENT OF PATHOLOGY, [address] [place] [address] [facility] Permit #[id number] Loco Eng M.D. Director Hong Hernandez M.D. Systems Integrator Dir annmarie -- Procedures Date Code Description Status 02/09/2016 17921 ECHO Stress Test Incl Perf Contiuous ekg Monitoring Completed W/Phys Superv 01/17/2016 43579 ECHO Transthoracic, Real-Time 2D With Doppler And Completed Color Flow 01/13/2016 26332 Holter Monitor Review (24 hr)dr review & interp only Completed 01/11/2016 99583 ECG Monitor/Recording W/Visual Superimposition Completed Scanning 01/04/2016 00902 EKG Tracing & Interpretation Completed 06/26/2013 57898 Rad Exam; Wrist, Comp, Min 3 Views Completed 01/03/2013 [id number] Colonoscopy Completed 03/12/2012 [id number] Bone Mineral Density Test Completed 11/01/2011 42664 Rad Exam; Hand Comp Completed 11/01/2011 61622 Aspiration &/Or Inj Of Ganglion Cyst(S) Any Location Completed Encounters Type Date Location Provider Dx Diagnosis Office Visit 11/20/2017 Rheumatology Surendra Gomes, R76.0 Raised antibody 3:00p [facility] [employer] Systems Engineer M.D. titer R73.9 Hyperglycemia, unspecified N18.9 Chronic kidney disease, unspecified M65.30 Trigger finger, unspecified finger Office Visit 09/17/2017 8:00a Rheumatology Surendra Gomes, R76.0 Raised antibody [facility] [employer] Engineer M.D. titer G56.03 Carpal tunnel syndrome, bilateral upper limbs R73.9 Hyperglycemia, unspecified R20.8 Other disturbances of skin sensation M70.831 [facility] soft tissue disorders related to use/pressure, r forearm Office Visit 02/18/2016 11:15a [facility] ADAMARIS Moody R00.2 Palpitations Of [employer] Systems Engineer Office Visit 01/04/2016 9:40a [facility] Sukhjinder Cooper0 Sharan Robles M.D. (primary) hypertension R00.2 Palpitations R07.9 Chest pain, unspecified G47.9 Sleep disorder, unspecified Office Visit 03/13/2014 1:30p [employer] [facility] Internal Logan Trujillo, [employer] SALESPERSON 995.3 Allergy Unspec Medicine - [facility] Office Visit 08/26/2013 2:10p [facility] [address] Internal Jolly Lopez, 782.1 Rash & Other Medicine - [facility] Nonspec Skin Eruption Office Visit 06/26/2013 3:45p Orthopedic Elysia Judge, 813.42 FX [employer] Services Of Franny (Alone) Distal C.M.A. End Other Closed 727.05 Tenosynovitis Hand & Wrist Other v67.4 Exam Follow Up Treatment Healed Fracture Office Visit 04/14/2013 12:10p [facility] [address] Internal Jolly Lopez, 354.0 Carpal Tunnel Medicine - [facility] Cyndie.Bola Syndrome 780.4 Dizziness & Giddiness V04.81 Need For Prophylactic Vaccination & Inoculation/Influenza Office Visit 03/10/2013 2:30p [facility] [address] Internal Jolly Lopez, 477.8 Rhinitis Medicine - [facility] [place] Allergic Due To Other Allergen 493.10 Asthma Intrinsic Unspecified 268.9 Vitamin D Deficiency Unspec 794.5 Thyroid Study Abnormal Office Visit 12/25/2012 3:10p [facility] [address] Internal Jolly 493.10 Asthma Intrinsic Medicine Lor Lopez M.D. Unspecified [facility] 244.8 Hypothyroidism Other Spec Office Visit 11/13/2012 3:10p [facility] [address] Internal Jolly 272.2 Hyperlipidemia Mixed Medicine Lor Lopez M.D. [facility] 244.8 Hypothyroidism Other Spec 786.2 Cough Office Visit 10/11/2012 9:00a [facility] [address] Internal Sofia Eliud, 461.0 Sinusitis Acute Medicine - [facility] N.P. Maxillary V76.51 Special Screening For Malignant Neoplasms Colon Office Visit 10/01/2012 9:30a [facility] [address] Internal Jolly Lopez, 079.99 Viral Infection Medicine - [facility] [place] Unspec 847.0 Sprains & Strains Neck 272.2 Hyperlipidemia Mixed 268.9 Vitamin D Deficiency Unspec 244.8 Hypothyroidism Other Spec Office Visit 09/03/2012 12:40p [facility] [address] Internal Theresa 845.19 Sprains & Strains Carisa Lyon M.D. Foot Other [facility] Office Visit 08/22/2012 3:40p [facility] [address] Internal Theresa 840.8 Sprains & Strains Carisa Lyon M.D. Shoulder & Upper Arm [facility] Other Spec Sites Office Visit 02/22/2012 4:00p [facility] [address] Internal Theresa 272.2 Hyperlipidemia Mixed Medicine - Franny Lyon Ccmob 268.9 Vitamin D Deficiency Unspec 627.9 Menopausal & Postmenopausal Disorder Unspec 530.81 Esophageal Reflux Office Visit 11/02/2011 3:00p [facility] [address] Internal Theresa Lyon, 327.23 Obstructive Sleep Medicine - M.DFlor Apnea Adult & [facility] Pediatric 790.6 Abnormal Blood Chemistry Other 272.2 Hyperlipidemia Mixed 278.00 Obesity Unspec V70.0 Examination General Medical Routine AT Health Care Facility V06.1 Iifngsgdxu-Zjegcfv-Rbiacrgw Combined (DTaP) Office Visit 11/01/2011 Orthopedic Chelsi 727.42 Ganglion 8:15a Services Of Franny Vang Tendon Sheath C.M.A. 727.43 Ganglion Unspec 729.5 Pain In Limb Office Visit 10/26/2011 11:40a [facility] [address] Internal Theresa Lyon, 327.23 Obstructive Sleep Medicine - M.DFlor Apnea Adult & [facility] 244.8 Hypothyroidism Other Spec 692.9 Dermatitis Unspec Cause Due To Spec Agents Other 780.79 Malaise And Fatigue Other V17.49 Family HX Of Other Cardiovascular Diseases Office Visit 08/03/2011 11:40a [facility] [address] Internal Theresa Lyon, 244.8 Hypothyroidism Other Medicine - M.D. Spec [facility] 842.13 Sprains & Strains Hand Interphalangeal (Joint) 780.57 Unspecified Sleep Apnea Office Visit 06/30/2011 12:40p [facility] [address] Internal Theresa Lyon, 461.0 Sinusitis Acute Medicine - [facility] M.DFlor Maxillary 244.8 Hypothyroidism Other Spec Office Visit 05/30/2011 3:40p DO Not Use Lizbeth Lyon, 244.8 Hypothyroidism Other AT [facility] M.DFlor Spec 780.57 Unspecified Sleep Apnea Plan of Treatment Future Appointment(s):02/24/2019 3:30 pm - ADAMARIS Sahu at [facility] [address]/23/2019 - Varinder Yuen PAM47.812 Spondylosis w/o myelopathy or radiculopathy, cervical dlqtruJ06.16 Radiculopathy, lumbar regionNew Xrays: MRI Lumbar Spine W/O, Scheduled: 01/28/19New Therapy:Chiropratic careFollow up: RTC 4 weeks
--- NOTE | 2019-02-20 08:49 | ED ---
Complex/Multi-Sys Presentation - HPI Summary HPI Summary: Patient is a 58 y/o F presenting to ED with complaints of tremors, diffuse cramping and N/V. She states that she has been vomiting clear fluids all morning , 02/20/19, and notes that she drank lots of fluids last night. She additionally endorses calf pain and BASS. She characterizes BASS as "pulsating" and notes that it is at the left side of her head. Chills, SOB, cough, chest pain with cough, dry mouth, and light-headedness are also endorsed. Diaphoresis is denied. She notes past history of thyroid issues and notes that she previously took levothyroxine. Patient additionally notes that she had diarrhea for a few days last week, which temporarily resolved but onset once more. Some alcohol usage is noted, patient is a former smoker of 20 years. She denies substance usage. Patient takes Zantac for GERD. FMHx of cancer, asthma. She reports PMHx of asthma and has an inhaler which she did not use today. No Hx of anxiety or depression is noted. Hx of DDD in lower back is reported. Patient does not report fever, erythema of eyes, sore throat, abdominal pain, dysuria, hematuria , edema, and rash. On triage, pain is rated 7/10, nothing is noted to aggravate/ alleviate Sx. Home medications and allergies are reviewed. - History Of Current Complaint Chief Complaint: EDShortnessOfBreath Time Seen by Provider: 02/20/19 08:36 Hx Obtained From: Patient Onset/Duration: Still Present Timing: Constant Severity Currently: Severe Location: Pain At: - head, chest pain with cough Character: Typical Headache - "pulsating" Aggravating Factor(s): nothing Alleviating Factor(s): nothing Associated Signs And Symptoms: Positive: Dizziness - light-headedness, Headache , SOB, Cough, Chest Pain - with cough, Nausea, Vomiting, Diarrhea, Other - positive - tremors, diffuse cramping, calf pain, chills, dry mouth; negative - erythema of eyes, sore throat, hematuria, rash. Negative: Edema, Abdominal Pain , Dysuria, Fever, Diaphoresis - Allergies/Home Medications Allergies/Adverse Reactions: Allergies Allergy/AdvReac Type Severity Reaction Status Date / Time No Known Allergies Allergy Verified 02/20/19 08:51 PMH/Surg Hx/FS Hx/Imm Hx Endocrine/Hematology History: Reports: Hx Diabetes - PRE NOT MEDS Denies: Hx Thyroid Disease Cardiovascular History: Denies: Hx Hypertension, Hx Pacemaker/ICD Respiratory History: Reports: Hx Asthma Denies: Hx Chronic Obstructive Pulmonary Disease (COPD) GI History: Reports: Hx Gastroesophageal Reflux Disease Denies: Hx Ulcer History: Denies: Hx Renal Disease Musculoskeletal History: Reports: Other Musculoskeletal History - DDD Sensory History: Denies: Hx Hearing Aid Psychiatric History: Denies: Hx Anxiety, Hx Depression, Hx Panic Disorder - Cancer History Hx Chemotherapy: No Hx Radiation Therapy: No - Surgical History Surgery Procedure, Year, and Place: hysterectomy 2009. RIGHT shoulder surgery 2003. tonsillectomy due to sleep apnea. LEFT ARM SURGERY Infectious Disease History: No Infectious Disease History: Denies: Hx Clostridium Difficile, Hx Hepatitis, Hx Human Immunodeficiency Virus (HIV), Hx of Known/Suspected MRSA, Hx Shingles, Hx Tuberculosis, Traveled Outside the [place] in Last 30 Days - Family History Known Family History: Positive: Respiratory Disease - asthma, Other - cancer - Social History Alcohol Use: Weekly Alcohol Amount: "every Sunday" Substance Use Type: Reports: None Smoking Status (MU): Former Smoker Review of Systems Constitutional: Other - positive - tremors, diffuse cramping Positive: Chills. Negative: Fever, Skin Diaphoresis Negative: Erythema ENT: Other - positive - dry mouth Negative: Sore Throat Positive: Chest Pain - w/ cough Positive: Shortness Of Breath, Cough Positive: Vomiting, Diarrhea, Nausea. Negative: Abdominal Pain Negative: dysuria, hematuria Positive: Myalgia - calf pain . Negative: Edema Negative: Rash Neurological: Other - negative - light-headedness Positive: Headache All Other Systems Reviewed And Are Negative: Yes Physical Exam - Summary Physical Exam Summary: Constitutional: Well-developed, Well-nourished, Alert. (-) Distressed. Mild tremors. Skin: Warm, Dry HENT: Normocephalic; Atraumatic Eyes: Conjunctiva normal Neck: Musculoskeletal ROM normal neck. (-) JVD, (-) Stridor, (-) Tracheal deviation Cardio: Rhythm regular, rate normal, Heart sounds normal; Intact distal pulses; The pedal pulses are 2+ and symmetric. Radial pulses are 2+ and symmetric. (-) Murmur Pulmonary/Chest wall: Effort normal. (-) Respiratory distress, (+) Slight wheeze in right lower lung (-) Rales Abd: Soft, (-) tenderness, (-) Distension, (-) Guarding, (-) Rebound Musculoskeletal: (-) Edema Lymph: (-) Cervical adenopathy Neuro: Alert, Oriented x3 Psych: Mood and affect Normal Triage Information Reviewed: Yes Vital Signs On Initial Exam: Initial Vitals Temp Pulse Resp BP Pulse Ox 98.3 F 133 25 158/120 94 02/20/19 08:23 02/20/19 08:23 02/20/19 08:23 02/20/19 08:23 02/20/19 08:23 Vital Signs Reviewed: Yes Diagnostics - Vital Signs Vital Signs Temp Pulse Resp BP Pulse Ox 02/20/19 08:23 98.3 F 133 25 158/120 94 - Laboratory Result Diagrams: 02/20/19 09:33 02/20/19 09:33 Lab Statement: Any lab studies that have been ordered have been reviewed, and results considered in the medical decision making process. - Radiology CHEST X-RAY Radiology Interpretation Completed By: Radiologist Summary of Radiographic Findings: CXR IMPRESSION: NO ACTIVE CARDIOPULMONARY DISEASE. THIS REPORT WAS REVIEWED BY DR. LISA. - CT CTA CHEST/THORAX CT Interpretation Completed By: Radiologist Summary of CT Findings: CTA CHEST/THORAX IMPRESSION: NO PULMONARY ARTERIAL FILLING DEFECT TO SUGGEST PULMONARY EMBOLISM. PATCHY CONSOLIDATION OF THE RIGHT LOWER LOBE. THIS REPORT WAS REVIEWED BY DR. LISA - EKG 0940 Cardiac Rate: NL - rate of 82 BPM EKG Rhythm: Sinus Rhythm Summary of EKG Findings: EKG showed sinus tachycardia with rate of 82 BPM, no STEMI. This EKG was reviewed and interpreted by Dr. Lisa. Re-Evaluation - Re-Evaluation First Eval Re-Evaluation Time: 14:55 Comment: Patient was ambulated without oxygen desaturation. Results of labs and tests were discussed with the patient, she will be discharged to home. Complex Multi-Symp Course/Dx Course Of Treatment: Patient is a 58 y/o F presenting to ED with complaints of tremors, diffuse cramping and N/V. She states that she has been vomiting clear fluids all morning, 02/20/19, and notes that she drank lots of fluids last night. She additionally endorses calf pain and BASS. She characterizes BASS as "pulsating" and notes that it is at the left side of her head. Chills, SOB, cough, chest pain with cough, dry mouth, and light-headedness are also endorsed. Diaphoresis is denied. She notes past history of thyroid issues and notes that she previously took levothyroxine. Patient additionally notes that she had diarrhea for a few days last week, which temporarily resolved but onset once more. On physical exam, slight wheeze of right lower lung is noted. Patient has mild tremors. EKG showed sinus tachycardia with rate of 82 BPM, no STEMI. CXR IMPRESSION: NO ACTIVE CARDIOPULMONARY DISEASE. Bloodwork was obtained. Abnormal values include RBC 5.53, RDW 16, creatinine 1.16, glucose 169, CRP 12.44. Trop was negative, lactic acid was normal, TSH and Free T4 were normal. UA showed trace leukocyte esterase, trace RBC and WBC, present squamous epith cells, hyaline casts present, ascorbic acid present. CTA CHEST/THORAX IMPRESSION: NO PULMONARY ARTERIAL FILLING DEFECT TO SUGGEST PULMONARY EMBOLISM. PATCHY CONSOLIDATION OF THE RIGHT LOWER LOBE. During ED course, patient received toradol 30 mg IV, prednisone 60 mg PO and Zithromax 500 mg PO. Patient was prescribed albuterol inhaler, Zithromax, prednisone. She will follow up with PCP within three days. Strict return precautions given. Patient understands and agrees with plan. - Diagnoses Provider Diagnoses: Community acquired pneumonia Discharge ED - Sign-Out/Discharge Documenting (check all that apply): Patient Departure - discharge Patient Received Moderate/Deep Sedation with Procedure: No - Discharge Plan Condition: Stable Disposition: HOME Prescriptions: Albuterol HFA INHALER* [Ventolin HFA Inhaler*] 1 - 2 puff INH Q4H PRN #1 mdi PRN Reason: Cough Azithromycin TAB* [Zithromax TAB (Z-ANTON) 250 mg #6 tabs] 2 tab PO .TODAY, THEN 1 DAILY #1 anton predniSONE TAB* [Deltasone TAB*] 50 mg PO DAILY #4 tab Patient Education Materials: Community Acquired Pneumonia (ED) Referrals: Catherine Zhang MD [Primary Care Provider] - 3 Days Additional Instructions: RETURN TO THE EMERGENCY DEPARTMENT FOR CHANGING OR WORSENING SYMPTOMS. FOLLOW UP WITH YOUR PRIMARY CARE PHYSICIAN WITHIN THREE DAYS. - Attestation Statements Document Initiated by Scribe: Yes Documenting Scribe: RODNEY LEBLANC Provider For Whom Scribe is Documenting (Include Credential): VALERIY LISA MD Scribe Attestation: I, RODNEY LEBLANC, scribed for VALERIY LISA MD on 02/20/19 at 1611. Status of Scribe Document: Ready
[2019-02-20 09:40] LABS: ABS Basophils 0.1 10^3/ul (0-0.2); ABS Eosinophils 0.2 10^3/ul (0-0.6); ABS Lymphocytes 1.7 10^3/ul (1.0-4.8); ABS Monocytes 0.6 10^3/ul (0-0.8); ABS Neutrophils 5.9 10^3/ul (1.5-7.7); Eosinophil % 1.9 %; Hematocrit 46 % (35-47); Hemoglobin 15.7 g/dL (12.0-16.0); Lymphocyte % 20.7 %; Mean Corpuscular HGB Conc 34 g/dL (31-36); Mean Corpuscular Hemoglobin 28 pg (27-31); Mean Corpuscular Volume 83 fL (80-97); Mean Platelet Volume 8.5 fL (7.4-10.4); Nucleated Red Blood Cells % 0.1; Platelet Count 239 10^3/uL (150-450); Red Blood Count 5.53 10^6 /uL (3.70-4.87); Red Cell Distribution Width 16 % (10-15); White Blood Count 8.4 10^3/uL (3.5-10.8)
[2019-02-20 09:53] LABS: Activated Partial Thrombo Time 31.9 seconds (26.0-38.0); INR 1.07 (0.82-1.09)
[2019-02-20 10:01] LABS: Albumin 4.6 g/dL (3.2-5.2); Albumin/Globulin Ratio 1.6 (1-3); BUN/Creatinine Ratio 8.6 (8-20); C Reactive Protein 12.44 mg/L (<8.01); Calcium 9.8 mg/dL (8.6-10.3); EGFR African American 58.5 (>60); EGFR Non-African American 48.3 (>60); Globulin 2.9 g/dL (2-4); Potassium 4.1 mmol/L (3.5-5.0); Total Bilirubin 0.5 mg/dL (0.2-1.0); Total Protein 7.5 g/dL (6.4-8.9)
[2019-02-20 10:26] LABS: TSH (Thyroid Stimulating Horm) 2.02 mcIU/mL (0.34-5.60)
[2019-02-20 10:28] LABS: Free T4 0.72 ng/dL (0.61-1.12)
[2019-02-20] MEDS: Ketorolac INJ* 30 MG/ML 1 ML VIAL IV PUSH ONE (12:10)
[2019-02-20 12:30] LABS: Urine Appearance Cloudy; Urine Bacteria Absent (Absent); Urine Bilirubin Negative (Negative); Urine Blood Negative (Negative); Urine Color Yellow; Urine Glucose Negative (Negative); Urine Ketones Negative (Negative); Urine Nitrite Negative (Negative); Urine Protein Negative (Negative); Urine Red Blood Cell Trace(0-2/hpf) (Absent); Urine Specific Gravity 1.015 (1.010-1.030); Urine Squamous Epithelial Cell Present (Absent); Urine Urobilinogen Negative (Negative); Urine White Blood Cell Trace(0-5/hpf) (Absent)
[2019-02-20] MEDS: Iodixanol* (CONTRAST) 320 MG/ML 100 ML SDV IV ONE (12:47)
[2019-02-20] MEDS: predniSONE TAB* 20 MG PO ONE (15:21)
[2019-02-20] MEDS: Azithromycin TAB* 250 MG PO ONE (15:21)
[2019-02-20 15:27] VITALS: BP 139/71
== END 2019-02-20 15:17 | disposition home or self-care (01) ==
LOC: ED 08:22
DX: J18.9 Pneumonia, unspecified organism (principal); E11.9 Type 2 diabetes mellitus without complications; J45.909 Unspecified asthma, uncomplicated; K21.9 Gastro-esophageal reflux disease without esophagitis; Z87.891 Personal history of nicotine dependence; Z79.899 Other long term (current) drug therapy
CPT/HCPCS: 36415; 71045; 71275; 80053; 81003; 81015; 83605; 84439; 84443; 84484; 85025; 85379; 85610; 85730; 86140; 87040; 87086; 93005; 96374; 99283; A9270-GY; J1885; J7512; Q9967